=== PATIENT | male | born 1950 | race Caucasian/White ===

== ENCOUNTER 2022-06-23 17:19 | Inpatient (IN) ==
[2022-06-23] MEDS ORDERED: Haloperidol Lactate 5 MG/ML VIAL IVP ONE (22:23)
[2022-06-23] MEDS ORDERED: Naloxone 0.4 MG/ML INJ IVP PRN (22:27)
[2022-06-23] MEDS ORDERED: MOM Conc 10 ML UD.LIQ PO PRN (22:27)
[2022-06-23] MEDS ORDERED: Acetaminophen 325 MG TABLET PO PRN (22:27)
[2022-06-23] MEDS ORDERED: *HR* LORazepam 1 MG TABLET PO PRN ×5 (22:29→23:18)
[2022-06-23] MEDS ORDERED: *HR* LORazepam 2 MG/ML VIAL IVP PRN ×5 (22:29→23:18)
[2022-06-23] MEDS ORDERED: Benzonatate 100 MG CAPSULE PO PRN (23:18)
[2022-06-23] MEDS ORDERED: 0.9 % Sodium Chloride 1,000 ML IVC SCH (23:45)
[2022-06-24] MEDS ORDERED: *HR* Labetalol 20 MG/4 ML SYRINGE IVP ONE ×2 (00:12→02:38)
[2022-06-24] MEDS: Dexmedetomidine HCl 400 MCG/100 ML MLS IVC SCH ×2 (03:09→12:55)
[2022-06-24 04:24] LABS: Bilirubin,Urine Negative (Negative); Blood,Urine Negative (Negative); Clarity,Urine Clear (Clear); Color,Urine Yellow (Yellow); Glucose,Urine (UA) Normal (Normal); Ketones,Urine 60 mg/dL (Negative); Leukocyte Esterase,Urine Negative (Negative); Nitrite,Urine Negative (Negative); PH,Urine 6.5 pH Units (5.0-8.0); Protein,Urine 70 mg/dL (Neg-Trace); RBC,Urine 0-3 per hpf (0-3); Specific Gravity,Urine 1.022 (1.010-1.025); Squamous Epithelial Cell,Urine Few per hpf (None-Few); WBC,Urine 0-3 per hpf (0-3)
[2022-06-24 04:33] LABS: Creatinine,Urine 144 mg/dL
[2022-06-24 04:34] LABS: Amphetamine Screen,Urine Negative ng/mL (Cutoff=1000); Barbiturate Screen,Urine Negative ng/mL (Cutoff=200); Benzodiazepines Screen,Urine Positive ng/mL (Cutoff=200); Cannabinoid Screen,Urine Negative ng/mL (Cutoff = 50); Cocaine Screen,Urine Negative ng/mL (Cutoff= 300); Opiate Screen,Urine Negative ng/mL (Cutoff=300); Phencyclidine Screen,Urine Negative ng/mL (Cutoff=25)
[2022-06-24] MEDS: *HR* Heparin 5,000 UNIT/ML VIAL SQ SCH ×2 (05:13→12:41)
[2022-06-24 06:05] LABS: Hematocrit 35.3 % (37.5-50.1); Hemoglobin 11.7 g/dL (12.9-16.9); Immature Granulocytes % 0.4 % (0-4); Lymphocytes # 0.4 K/mcL (0.6-4.6); Lymphocytes % 13.8 %; Mean Corpuscular HGB Conc 33.1 g/dL (31.6-35.5); Mean Corpuscular Hemoglobin 35.1 pg (28.0-33.3); Mean Platelet Volume 11.6 fL (9.4-12.4); Monocytes # 0.1 K/mcL (0.0-1.3); Monocytes % 3.4 %; Neutrophils # 2.2 K/mcL (1.6-8.9); Red Blood Count 3.33 M/mcL (4.19-5.50); Red Cell Distribution Width 13.3 % (11.5-14.5); Segmented Neutrophils % 82.4 %; White Blood Count 2.7 K/mcL (4.3-11.1)
[2022-06-24 06:15] LABS: Fibrinogen 350 mg/dL (169-393)
[2022-06-24 06:21] LABS: D-Dimer 1173 ng/mLFEU (0-500)
[2022-06-24 06:48] LABS: Alanine Aminotransferase 91 Units/L (7-52); Albumin 3.5 g/dL (3.5-5.7); Albumin/Globulin Ratio 1.5 (1.1-2.2); Alkaline Phosphatase 111 Units/L (34-104); Aspartate Amino Transferase 224 Units/L (13-39); BUN/Creatinine Ratio 19 (6-26); Bilirubin,Total 2.4 mg/dL (0.3-1.0); Blood Urea Nitrogen 14 mg/dL (8-23); Calcium 8.2 mg/dL (8.6-10.3); Carbon Dioxide 25 mEq/L (23-29); Chloride 103 mEq/L (98-107); Ethanol < 10 mg/dL (Less than 10); Globulin 2.4 g/dL (2.4-3.5); Glucose 140 mg/dL (70-105); Lactate Dehydrogenase 495 Units/L (140-271); Lipase 475 Units/L (11-82); Magnesium 1.9 mg/dL (1.6-2.6); Osmolality,Calculated 289 (280-300); Phosphorous 2.6 mg/dL (2.7-4.5); Potassium 3.4 mEq/L (3.5-5.1); Sodium 138 mEq/L (136-145); Thyroid Stimulating Hormone 3.375 mcIU/mL (0.340-5.600); Total Protein 5.9 g/dL (6.4-8.9); Troponin I 0.05 ng/mL (< 0.04)
[2022-06-24 06:49] LABS: Platelet Count 44 K/mcL (140-400)
[2022-06-24] MEDS: Folic Acid 1 MG TABLET PO SCH (07:59)
[2022-06-24] MEDS: Thiamine (B-1) 100 MG TABLET PO SCH (07:59)
[2022-06-24] MEDS: Vitamin B Complex/Vit C/Vit E 1 EACH TABLET PO SCH (07:59)
[2022-06-24] MEDS: *HR* Labetalol 20 MG/4 ML SYRINGE IVP PRN (08:00)
[2022-06-24] MEDS ORDERED: Potassium Phosphate 44 MEQ in 0.9 % Sodium Chloride 250 ML IVPB ONE (08:08)
[2022-06-24 10:55] LABS: Prothrombin Time 11.4 Seconds (9.4-12.1)
[2022-06-24 12:37] LABS: C-Reactive Protein 134 mg/L (Less than 10)
[2022-06-24] MEDS: Morphine Sulfate 2 MG/ML SYRINGE IVP SCH ×2 (12:42→18:34)
[2022-06-24] MEDS: 0.9 % Sodium Chloride 1,000 ML IVC SCH (15:27)
[2022-06-25] MEDS: Morphine Sulfate 2 MG/ML SYRINGE IVP SCH ×5 (00:30→17:24)
[2022-06-25] MEDS: 0.9 % Sodium Chloride 1,000 ML IVC SCH ×3 (00:57→20:05)
[2022-06-25] MEDS: Dexmedetomidine HCl 400 MCG/100 ML MLS IVC SCH ×4 (00:58→18:30)
[2022-06-25 04:29] LABS: Mean Platelet Volume 11.2 fL (9.4-12.4)
[2022-06-25 04:31] LABS: Basophils % 0.5 %; Eosinophils % 0.5 %; Hematocrit 32.7 % (37.5-50.1); Hemoglobin 10.6 g/dL (12.9-16.9); Immature Platelets 7.2 % (1.1-6.1); Lymphocytes # 0.5 K/mcL (0.6-4.6); Lymphocytes % 22.5 %; Mean Corpuscular HGB Conc 32.4 g/dL (31.6-35.5); Mean Corpuscular Hemoglobin 34.5 pg (28.0-33.3); Mean Corpuscular Volume 106.5 fL (83.0-100.0); Monocytes # 0.1 K/mcL (0.0-1.3); Monocytes % 2.5 %; Neutrophils # 1.5 K/mcL (1.6-8.9); Red Blood Count 3.07 M/mcL (4.19-5.50)
[2022-06-25 04:37] LABS: Platelet Count 41 K/mcL (140-400)
[2022-06-25 04:49] LABS: Alanine Aminotransferase 89 Units/L (7-52); Albumin/Globulin Ratio 1.4 (1.1-2.2); Alkaline Phosphatase 97 Units/L (34-104); Aspartate Amino Transferase 214 Units/L (13-39); BUN/Creatinine Ratio 21 (6-26); Bilirubin,Total 2.1 mg/dL (0.3-1.0); Blood Urea Nitrogen 14 mg/dL (8-23); Calcium 7.8 mg/dL (8.6-10.3); Carbon Dioxide 25 mEq/L (23-29); Chloride 107 mEq/L (98-107); Chol/HDL Ratio 3.2 (0-4.9); Cholesterol 147 mg/dL (< 200); Globulin 2.2 g/dL (2.4-3.5); Glucose 116 mg/dL (70-105); HDL Cholesterol 46 mg/dL (40-59); LDL Cholesterol,Calculated 75 mg/dL (< 100); Osmolality,Calculated 291 (280-300); Phosphorous 2.7 mg/dL (2.7-4.5); Potassium 3.6 mEq/L (3.5-5.1); Sodium 140 mEq/L (136-145); Total Protein 5.2 g/dL (6.4-8.9); Triglycerides 128 mg/dL (< 150)
[2022-06-25 05:12] LABS: Folate 12.3 ng/mL (3.0-16.0)
[2022-06-25] MEDS: Vitamin B Complex/Vit C/Vit E 1 EACH TABLET PO SCH (07:41)
[2022-06-25] MEDS: Folic Acid 1 MG TABLET PO SCH (07:41)
[2022-06-25] MEDS: Thiamine (B-1) 100 MG TABLET PO SCH (07:41)
[2022-06-25] MEDS: *HR* LORazepam 2 MG/ML VIAL IVP PRN ×3 (15:09→21:57)
[2022-06-25] MEDS ORDERED: *HR* OxyCODONE/APAP 10/325 TABLET PO PRN (18:37)
[2022-06-25] MEDS ORDERED: Morphine Sulfate 2 MG/ML SYRINGE IVP PRN (18:39)
[2022-06-25] MEDS: Mirtazapine 15 MG TABLET PO SCH (20:05)
[2022-06-26] MEDS: *HR* LORazepam 2 MG/ML VIAL IVP PRN ×6 (00:34→11:44)
[2022-06-26] MEDS: Dexmedetomidine HCl 400 MCG/100 ML MLS IVC SCH ×5 (01:11→23:40)
[2022-06-26] MEDS: *HR* Labetalol 20 MG/4 ML SYRINGE IVP PRN (01:13)
[2022-06-26] MEDS ORDERED: Haloperidol Lactate 5 MG/ML VIAL IM ONE (03:47)
[2022-06-26 05:00] LABS: Basophils % 0.4 %; Eosinophils % 1.7 %
[2022-06-26 05:02] LABS: Hematocrit 32.8 % (37.5-50.1); Hemoglobin 10.9 g/dL (12.9-16.9); Immature Granulocytes % 0.9 % (0-4); Immature Platelets 5.3 % (1.1-6.1); Lymphocytes # 0.5 K/mcL (0.6-4.6); Lymphocytes % 20.5 %; Mean Corpuscular HGB Conc 33.2 g/dL (31.6-35.5); Mean Corpuscular Hemoglobin 35.5 pg (28.0-33.3); Mean Corpuscular Volume 106.8 fL (83.0-100.0); Monocytes # 0.1 K/mcL (0.0-1.3); Monocytes % 4.7 %; Neutrophils # 1.7 K/mcL (1.6-8.9); Nucleated Red Blood Cells 0.9 /100 WBC (0); Red Blood Count 3.07 M/mcL (4.19-5.50); Red Cell Distribution Width 13.1 % (11.5-14.5); Segmented Neutrophils % 71.8 %; White Blood Count 2.3 K/mcL (4.3-11.1)
[2022-06-26 05:09] LABS: Alanine Aminotransferase 82 Units/L (7-52); Albumin 2.9 g/dL (3.5-5.7); Albumin/Globulin Ratio 1.2 (1.1-2.2); Alkaline Phosphatase 102 Units/L (34-104); Aspartate Amino Transferase 180 Units/L (13-39); BUN/Creatinine Ratio 22 (6-26); Bilirubin,Total 2.2 mg/dL (0.3-1.0); Blood Urea Nitrogen 13 mg/dL (8-23); Calcium 7.7 mg/dL (8.6-10.3); Carbon Dioxide 25 mEq/L (23-29); Chloride 108 mEq/L (98-107); Globulin 2.4 g/dL (2.4-3.5); Glucose 81 mg/dL (70-105); Magnesium 1.8 mg/dL (1.6-2.6); Osmolality,Calculated 291 (280-300); Phosphorous 1.9 mg/dL (2.7-4.5); Potassium 3.3 mEq/L (3.5-5.1); Sodium 141 mEq/L (136-145); Total Protein 5.3 g/dL (6.4-8.9)
[2022-06-26 05:11] LABS: Platelet Count 47 K/mcL (140-400)
[2022-06-26] MEDS: 0.9 % Sodium Chloride 1,000 ML IVC SCH ×2 (05:53→15:09)
[2022-06-26] MEDS ORDERED: Potassium Phosphate 44 MEQ in 0.9 % Sodium Chloride 250 ML IVPB ONE (06:46)
[2022-06-26] MEDS: Vitamin B Complex/Vit C/Vit E 1 EACH TABLET PO SCH (07:45)
[2022-06-26] MEDS: Folic Acid 1 MG TABLET PO SCH (07:45)
[2022-06-26] MEDS: Metoprolol XL (24 HR) Succ 50 MG TAB.ER.24H PO SCH (07:45)
[2022-06-26] MEDS: Thiamine (B-1) 100 MG TABLET PO SCH (07:46)
[2022-06-26] MEDS: lisinopriL 20 MG TABLET PO SCH (07:46)
[2022-06-26] MEDS ORDERED: *HR* LORazepam 2 MG/ML VIAL IVP PRN ×2 (08:30)
[2022-06-26] MEDS: Morphine Sulfate 2 MG/ML SYRINGE IVP SCH ×4 (08:31→21:00)
[2022-06-26] MEDS ORDERED: Furosemide 40 MG/4 ML VIAL IVP ONE (10:03)
[2022-06-26] MEDS: Budesonide/Formoterol 160/4.5 1 PUFF INH IH SCH ×2 (10:44→19:51)
[2022-06-26 13:35] LABS: ABG Base Excess -2 mEq/L (-2 to 3); ABG HCO3 21 mEq/L (21-27); ABG Oxygen Saturation 98 % (95-98); ABG PCO2 29 mmHg (35-45); ABG PH 7.46 pH Units (7.32-7.45); ABG PO2 100 mmHg (85-104); ABG TCO2 22 mEq/L (20-26)
[2022-06-26] MEDS: Thiamine (B-1) 100 MG in 0.9 % Sodium Chloride 50 ML IVPB SCH (15:08)
[2022-06-26 17:41] LABS: BUN/Creatinine Ratio 20 (6-26); Blood Urea Nitrogen 13 mg/dL (8-23); Calcium 7.6 mg/dL (8.6-10.3); Carbon Dioxide 22 mEq/L (23-29); Chloride 106 mEq/L (98-107); Glucose 147 mg/dL (70-105); Magnesium 1.7 mg/dL (1.6-2.6); Osmolality,Calculated 289 (280-300); Potassium 3.4 mEq/L (3.5-5.1); Sodium 138 mEq/L (136-145)
[2022-06-26] MEDS ORDERED: Artificial Tears SOLN 15 ML BOTTLE BOTH EYES PRN (17:54)
[2022-06-26] MEDS ORDERED: GuaiFENesin Liq 200 MG/10 ML UDC GTUBE PRN (17:54)
[2022-06-26] MEDS ORDERED: *HR* Etomidate 20 MG/10 ML AMPUL IVP ONE (17:56)
[2022-06-26] MEDS ORDERED: *HR* Midazolam HCl 5 MG/5 ML VIAL IVP ONE (17:56)
[2022-06-26] MEDS: FentaNYL (PF) 1,000 MCG/100 ML IV.SOLN IVC SCH ×2 (18:00→21:39)
[2022-06-26 18:28] LABS: ABG Base Excess -4 mEq/L (-2 to 3); ABG HCO3 21 mEq/L (21-27); ABG Oxygen Saturation 97 % (95-98); ABG PCO2 37 mmHg (35-45); ABG PH 7.37 pH Units (7.32-7.45); ABG PO2 96 mmHg (85-104); ABG TCO2 22 mEq/L (20-26); Blood Gas Modality AF; Blood Gas VT 500 cc
[2022-06-26] MEDS: Pantoprazole 40 MG VIAL IVP SCH (18:44)
[2022-06-26] MEDS: Piperacillin/Tazobactam 3.375 GM in 0.9 % Sodium Chloride Mini Bag 100 ML IVPB SCH (18:45)
[2022-06-26] MEDS: Midazolam HCl 50 MG/50 ML IV.SOLN IVC SCH ×2 (18:45→22:32)
[2022-06-26] MEDS ORDERED: Vancomycin 1,500 MG/265 ML IV.SOLN IVPB ONE (19:00)
[2022-06-26] MEDS: Norepinephrine 4 MG/254 ML IV.SOLN IVC SCH (19:35)
[2022-06-26] MEDS: Artificial Tears SOLN 15 ML BOTTLE BOTH EYES SCH ×2 (19:42→23:14)
[2022-06-26] MEDS: Chlorhexidine Rinse 15 ML MOUTHWASH MM SCH (20:17)
[2022-06-26] MEDS: Mirtazapine 15 MG TABLET PO SCH (20:18)
[2022-06-27] MEDS: 0.9 % Sodium Chloride 1,000 ML IVC SCH ×3 (00:47→20:20)
[2022-06-27] MEDS: Piperacillin/Tazobactam 3.375 GM in 0.9 % Sodium Chloride Mini Bag 100 ML IVPB SCH ×3 (02:01→17:46)
[2022-06-27] MEDS: Dexmedetomidine HCl 400 MCG/100 ML MLS IVC SCH ×4 (02:02→20:19)
[2022-06-27] MEDS: Midazolam HCl 50 MG/50 ML IV.SOLN IVC SCH ×6 (02:03→20:22)
[2022-06-27] MEDS: FentaNYL (PF) 1,000 MCG/100 ML IV.SOLN IVC SCH ×5 (02:03→21:30)
[2022-06-27] MEDS ORDERED: Ibuprofen 800 MG TABLET PO ONE (02:28)
[2022-06-27] MEDS: Artificial Tears SOLN 15 ML BOTTLE BOTH EYES SCH ×5 (03:19→20:56)
[2022-06-27 03:23] LABS: Mean Corpuscular Volume 108.4 fL (83.0-100.0)
[2022-06-27 03:25] LABS: Basophils % 0.5 %; Hematocrit 32.3 % (37.5-50.1); Hemoglobin 10.4 g/dL (12.9-16.9); Immature Granulocytes % 1.4 % (0-4); Immature Platelets 4.7 % (1.1-6.1); Lymphocytes # 0.3 K/mcL (0.6-4.6); Mean Corpuscular HGB Conc 32.2 g/dL (31.6-35.5); Mean Corpuscular Hemoglobin 34.9 pg (28.0-33.3); Mean Platelet Volume 10.7 fL (9.4-12.4); Monocytes # 0.2 K/mcL (0.0-1.3); Monocytes % 10.6 %; Neutrophils # 1.6 K/mcL (1.6-8.9); Nucleated Red Blood Cells 0.9 /100 WBC (0); Red Blood Count 2.98 M/mcL (4.19-5.50); Red Cell Distribution Width 13.7 % (11.5-14.5); Segmented Neutrophils % 74.5 %; White Blood Count 2.2 K/mcL (4.3-11.1)
[2022-06-27 03:36] LABS: Platelet Count 54 K/mcL (140-400)
[2022-06-27 03:41] LABS: Alanine Aminotransferase 68 Units/L (7-52); Albumin 2.7 g/dL (3.5-5.7); Albumin/Globulin Ratio 1.2 (1.1-2.2); Alkaline Phosphatase 95 Units/L (34-104); Aspartate Amino Transferase 129 Units/L (13-39); BUN/Creatinine Ratio 21 (6-26); Bilirubin,Total 1.8 mg/dL (0.3-1.0); Blood Urea Nitrogen 15 mg/dL (8-23); Calcium 7.4 mg/dL (8.6-10.3); Carbon Dioxide 24 mEq/L (23-29); Chloride 109 mEq/L (98-107); Globulin 2.3 g/dL (2.4-3.5); Glucose 114 mg/dL (70-105); Magnesium 1.7 mg/dL (1.6-2.6); Osmolality,Calculated 294 (280-300); Phosphorous 2.2 mg/dL (2.7-4.5); Potassium 3.2 mEq/L (3.5-5.1); Sodium 141 mEq/L (136-145)
[2022-06-27] MEDS ORDERED: Potassium Chloride Elixir 20 MEQ/15 ML UDC GTUBE ONE (03:54)
[2022-06-27 04:25] LABS: ABG Base Excess -2 mEq/L (-2 to 3); ABG HCO3 22 mEq/L (21-27); ABG Oxygen Saturation 96 % (95-98); ABG PCO2 34 mmHg (35-45); ABG PH 7.42 pH Units (7.32-7.45); ABG PO2 81 mmHg (85-104); ABG TCO2 23 mEq/L (20-26); Blood Gas Modality ASSIST CONTROL; Blood Gas VT 500 cc
[2022-06-27] MEDS: Norepinephrine 4 MG/254 ML IV.SOLN IVC SCH (07:41)
[2022-06-27] MEDS: Chlorhexidine Rinse 15 ML MOUTHWASH MM SCH ×2 (07:45→20:18)
[2022-06-27] MEDS: Vancomycin 1,500 MG/265 ML IV.SOLN IVPB SCH ×2 (07:45→18:38)
[2022-06-27] MEDS: Thiamine (B-1) 100 MG TABLET PO SCH (07:48)
[2022-06-27] MEDS: Vitamin B Complex/Vit C/Vit E 1 EACH TABLET PO SCH (07:48)
[2022-06-27] MEDS: Dexamethasone Sodium Phos/PF 10 MG/ML VIAL IVP SCH (07:48)
[2022-06-27] MEDS: Morphine Sulfate 2 MG/ML SYRINGE IVP SCH ×3 (07:49→19:00)
[2022-06-27] MEDS: Pantoprazole 40 MG VIAL IVP SCH (08:12)
[2022-06-27] MEDS: Metoprolol XL (24 HR) Succ 50 MG TAB.ER.24H PO SCH (08:13)
[2022-06-27] MEDS: Budesonide/Formoterol 160/4.5 1 PUFF INH IH SCH ×2 (08:18→20:09)
[2022-06-27] MEDS: Thiamine (B-1) 100 MG in 0.9 % Sodium Chloride 50 ML IVPB SCH (08:40)
[2022-06-27] MEDS ORDERED: D10% in Water 500 ML IVC PRN (09:35)
[2022-06-27] MEDS: Calcium Gluconate 1gm/50mL 1 GM/50 ML BAG IVPB PRN (11:56)
[2022-06-27] MEDS: Potassium Phosphate 44 MEQ in 0.9 % Sodium Chloride 250 ML IVPB PRN (12:21)
[2022-06-27 13:03] LABS: A.calcoaceticus-baumannii cplx Not Detected (Not Detect); Bacteroides fragilis by PCR Not Detected (Not Detect); Candida albicans by PCR Not Detected (Not Detect); Candida auris by PCR Not Detected (Not Detect); Candida glabrata by PCR Not Detected (Not Detect); Candida krusei by PCR Not Detected (Not Detect); Candida parapsilosis by PCR Not Detected (Not Detect); Candida tropicalis by PCR Not Detected (Not Detect); Crypto. neoformans/gattii PCR Not Detected (Not Detect); Enterobacter cloacae Cmplx PCR Not Detected (Not Detect); Enterobacterales by PCR Not Detected (Not Detect); Enterococcus faecalis by PCR Not Detected (Not Detect); Enterococcus faecium by PCR Not Detected (Not Detect); Escherichia coli by PCR Not Detected (Not Detect); Klebs. pneumoniae group by PCR Not Detected (Not Detect); Klebsiella aerogenes by PCR Not Detected (Not Detect); Klebsiella oxytoca by PCR Not Detected (Not Detect); Proteus by PCR Not Detected (Not Detect); Pseudomonas aeruginosa by PCR Not Detected (Not Detect); Salmonella species by PCR Not Detected (Not Detect); Serratia marcescens by PCR Not Detected (Not Detect); Staph epidermidis by PCR Not Detected (Not Detect); Staph lugdunensis by PCR Not Detected (Not Detect); Staphylococcus aureus by PCR DETECTED (Not Detect); Stenotrophomonas maltophilia Not Detected (Not Detect); Streptococcus agalactiae(B)PCR Not Detected (Not Detect); Streptococcus by PCR Not Detected (Not Detect); Streptococcus pneumoniae PCR Not Detected (Not Detect); Streptococcus pyogenes (A) PCR Not Detected (Not Detect); mecA/C & MREJ (MRSA) Gene Not Detected (Not Detect)
[2022-06-27] MEDS: Insulin LISPRO 300 UNITS/3 ML VIAL SUBQ SCH ×2 (16:37→20:56)
[2022-06-27] MEDS ORDERED: Fat Emulsion 250 ML IVPB SCH (17:00)
[2022-06-27] MEDS ORDERED: Clinimix E 5%-20% SOLUTION 2,000 ML with MVI, adult with vitamin K 10 ML IVC SCH (17:00)
[2022-06-27] MEDS: Mirtazapine 15 MG TABLET PO SCH (20:19)
[2022-06-28] MEDS: Artificial Tears SOLN 15 ML BOTTLE BOTH EYES SCH ×6 (00:54→20:58)
[2022-06-28] MEDS: Insulin LISPRO 300 UNITS/3 ML VIAL SUBQ SCH ×6 (01:16→20:59)
[2022-06-28] MEDS: Norepinephrine 4 MG/254 ML IV.SOLN IVC SCH ×2 (01:17→09:43)
[2022-06-28] MEDS: Midazolam HCl 50 MG/50 ML IV.SOLN IVC SCH ×2 (02:20→06:51)
[2022-06-28] MEDS: Piperacillin/Tazobactam 3.375 GM in 0.9 % Sodium Chloride Mini Bag 100 ML IVPB SCH ×3 (02:21→18:01)
[2022-06-28] MEDS: Morphine Sulfate 2 MG/ML SYRINGE IVP SCH ×2 (02:21→07:07)
[2022-06-28] MEDS: FentaNYL (PF) 1,000 MCG/100 ML IV.SOLN IVC SCH ×2 (02:50→07:14)
[2022-06-28] MEDS: Dexmedetomidine HCl 400 MCG/100 ML MLS IVC SCH ×3 (04:31→16:54)
[2022-06-28 05:00] LABS: ABG Base Excess -4 mEq/L (-2 to 3); ABG HCO3 21 mEq/L (21-27); ABG Oxygen Saturation 97 % (95-98); ABG PCO2 33 mmHg (35-45); ABG PH 7.41 pH Units (7.32-7.45); ABG PO2 85 mmHg (85-104); ABG TCO2 22 mEq/L (20-26); Blood Gas Modality ASSIST CONTROL; Blood Gas VT 500 cc
[2022-06-28] MEDS: 0.9 % Sodium Chloride 1,000 ML IVC SCH ×2 (06:48→15:41)
[2022-06-28] MEDS: Pantoprazole 40 MG VIAL IVP SCH (07:13)
[2022-06-28] MEDS: Chlorhexidine Rinse 15 ML MOUTHWASH MM SCH ×2 (07:13→21:00)
[2022-06-28] MEDS: Thiamine (B-1) 100 MG in 0.9 % Sodium Chloride 50 ML IVPB SCH (07:13)
[2022-06-28] MEDS: Thiamine (B-1) 100 MG TABLET PO SCH (07:14)
[2022-06-28] MEDS: Vitamin B Complex/Vit C/Vit E 1 EACH TABLET PO SCH (07:14)
[2022-06-28] MEDS: Dexamethasone Sodium Phos/PF 10 MG/ML VIAL IVP SCH (07:14)
[2022-06-28] MEDS: Metoprolol XL (24 HR) Succ 50 MG TAB.ER.24H PO SCH (07:40)
[2022-06-28] MEDS: Budesonide/Formoterol 160/4.5 1 PUFF INH IH SCH ×2 (08:10→20:09)
[2022-06-28] MEDS ORDERED: *HR* Methotrexate 2.5 MG TABLET PO SCH (09:00)
[2022-06-28 09:07] LABS: Alanine Aminotransferase 64 Units/L (7-52); Albumin 2.7 g/dL (3.5-5.7); Albumin/Globulin Ratio 1.1 (1.1-2.2); Alkaline Phosphatase 82 Units/L (34-104); Aspartate Amino Transferase 96 Units/L (13-39); BUN/Creatinine Ratio 23 (6-26); Bilirubin,Total 1.1 mg/dL (0.3-1.0); Blood Urea Nitrogen 15 mg/dL (8-23); Calcium 7.4 mg/dL (8.6-10.3); Carbon Dioxide 22 mEq/L (23-29); Chloride 115 mEq/L (98-107); Globulin 2.5 g/dL (2.4-3.5); Glucose 106 mg/dL (70-105); Osmolality,Calculated 295 (280-300); Potassium 3.5 mEq/L (3.5-5.1); Sodium 142 mEq/L (136-145); Total Protein 5.2 g/dL (6.4-8.9)
[2022-06-28] MEDS: Vancomycin 2,000 MG/520 ML IV.SOLN IVPB SCH ×2 (09:43→18:42)
[2022-06-28 09:54] LABS: Lipase 147 Units/L (11-82)
[2022-06-28 09:59] LABS: Mean Corpuscular HGB Conc 32.3 g/dL (31.6-35.5); Mean Platelet Volume 10.1 fL (9.4-12.4)
[2022-06-28 10:01] LABS: Hematocrit 32.5 % (37.5-50.1); Hemoglobin 10.5 g/dL (12.9-16.9); Immature Platelets 4.2 % (1.1-6.1); Lymphocytes # 0.2 K/mcL (0.6-4.6); Mean Corpuscular Hemoglobin 35.4 pg (28.0-33.3); Mean Corpuscular Volume 109.4 fL (83.0-100.0); Red Blood Count 2.97 M/mcL (4.19-5.50); Red Cell Distribution Width 13.7 % (11.5-14.5); White Blood Count 2.4 K/mcL (4.3-11.1)
[2022-06-28 10:03] LABS: Platelet Count 81 K/mcL (140-400)
[2022-06-28 10:23] LABS: Eosinophils # 0.1 K/mcL (0.0-0.6)
[2022-06-28 10:24] LABS: Platelet Estimate Slight Decrease (Normal); Polychromasia 1+ (Not Present)
[2022-06-28 10:26] LABS: Monocytes # 0.2 K/mcL (0.0-1.3); Neutrophils # 1.9 K/mcL (1.6-8.9)
[2022-06-28 11:03] LABS: Prothrombin Time 11.6 Seconds (9.4-12.1)
[2022-06-28 11:05] LABS: Activated Partial Thrombo Time 25.7 Seconds (26.0-36.0)
[2022-06-28] MEDS: Potassium Phosphate 44 MEQ in 0.9 % Sodium Chloride 250 ML IVPB PRN (11:16)
[2022-06-28] MEDS: Calcium Gluconate 1gm/50mL 1 GM/50 ML BAG IVPB PRN (12:52)
[2022-06-28] MEDS: *HR* Labetalol 20 MG/4 ML SYRINGE IVP PRN ×2 (15:40→22:06)
[2022-06-28] MEDS: Morphine Sulfate 2 MG/ML SYRINGE IVP PRN ×2 (15:41→22:05)
[2022-06-28] MEDS: Fat Emulsion 250 ML IVPB SCH (16:09)
[2022-06-28] MEDS ORDERED: Clinimix E 5%-20% SOLUTION 2,000 ML with MVI, adult with vitamin K 10 ML IVC SCH (17:00)
[2022-06-28] MEDS: Mirtazapine 15 MG TABLET PO SCH (21:00)
[2022-06-29] MEDS: Artificial Tears SOLN 15 ML BOTTLE BOTH EYES SCH ×4 (00:39→11:58)
[2022-06-29] MEDS: Insulin LISPRO 300 UNITS/3 ML VIAL SUBQ SCH ×6 (00:40→20:33)
[2022-06-29] MEDS: Norepinephrine 4 MG/254 ML IV.SOLN IVC SCH (00:40)
[2022-06-29] MEDS: Dexmedetomidine HCl 400 MCG/100 ML MLS IVC SCH ×3 (00:41→15:30)
[2022-06-29] MEDS: 0.9 % Sodium Chloride 1,000 ML IVC SCH (03:52)
[2022-06-29] MEDS: Piperacillin/Tazobactam 3.375 GM in 0.9 % Sodium Chloride Mini Bag 100 ML IVPB SCH ×2 (03:52→11:35)
[2022-06-29] MEDS: *HR* LORazepam 2 MG/ML VIAL IVP PRN (03:53)
[2022-06-29] MEDS: *HR* Labetalol 20 MG/4 ML SYRINGE IVP PRN ×2 (04:00→22:56)
[2022-06-29] MEDS ORDERED: Ibuprofen 800 MG TABLET PO ONE (04:04)
[2022-06-29 05:17] LABS: Basophils % 0.3 %; Eosinophils % 0.3 %; Hematocrit 35.4 % (37.5-50.1); Hemoglobin 10.8 g/dL (12.9-16.9); Lymphocytes # 0.3 K/mcL (0.6-4.6); Mean Corpuscular HGB Conc 30.5 g/dL (31.6-35.5); Mean Corpuscular Volume 114.6 fL (83.0-100.0); Monocytes # 0.2 K/mcL (0.0-1.3); Monocytes % 5.1 %; Platelet Count 109 K/mcL (140-400); Red Blood Count 3.09 M/mcL (4.19-5.50); Red Cell Distribution Width 13.3 % (11.5-14.5); Segmented Neutrophils % 85.3 %; White Blood Count 3.1 K/mcL (4.3-11.1)
[2022-06-29 05:36] LABS: Neutrophils # 2.6 K/mcL (1.6-8.9)
[2022-06-29 05:37] LABS: Platelet Estimate Slight Decrease (Normal)
[2022-06-29 07:27] LABS: Alanine Aminotransferase 68 Units/L (7-52); Albumin 2.8 g/dL (3.5-5.7); Albumin/Globulin Ratio 1.1 (1.1-2.2); Alkaline Phosphatase 114 Units/L (34-104); Aspartate Amino Transferase 107 Units/L (13-39); BUN/Creatinine Ratio 16 (6-26); Bilirubin,Total 1.2 mg/dL (0.3-1.0); Blood Urea Nitrogen 10 mg/dL (8-23); Calcium 7.8 mg/dL (8.6-10.3); Carbon Dioxide 26 mEq/L (23-29); Chloride 108 mEq/L (98-107); Globulin 2.5 g/dL (2.4-3.5); Glucose 158 mg/dL (70-105); Magnesium 1.7 mg/dL (1.6-2.6); Osmolality,Calculated 294 (280-300); Potassium 2.8 mEq/L (3.5-5.1); Sodium 141 mEq/L (136-145); Total Protein 5.3 g/dL (6.4-8.9)
[2022-06-29] MEDS: Budesonide/Formoterol 160/4.5 1 PUFF INH IH SCH ×2 (07:38→20:46)
[2022-06-29] MEDS: Dexamethasone Sodium Phos/PF 10 MG/ML VIAL IVP SCH (07:55)
[2022-06-29] MEDS: Pantoprazole 40 MG VIAL IVP SCH (07:55)
[2022-06-29] MEDS: Chlorhexidine Rinse 15 ML MOUTHWASH MM SCH ×2 (07:55→20:32)
[2022-06-29] MEDS: Vitamin B Complex/Vit C/Vit E 1 EACH TABLET PO SCH (07:56)
[2022-06-29] MEDS: Thiamine (B-1) 100 MG TABLET PO SCH (07:56)
[2022-06-29] MEDS: Vancomycin 2,000 MG/520 ML IV.SOLN IVPB SCH (09:33)
[2022-06-29] MEDS: Thiamine (B-1) 100 MG in 0.9 % Sodium Chloride 50 ML IVPB SCH (09:34)
[2022-06-29] MEDS: Potassium Phosphate 44 MEQ in 0.9 % Sodium Chloride 250 ML IVPB PRN (12:48)
[2022-06-29] MEDS: CeFAZolin 2,000 MG/120 ML BAG IVPB SCH (16:05)
[2022-06-29] MEDS: Fat Emulsion 250 ML IVPB SCH (16:43)
[2022-06-29] MEDS: *HR* Metoprolol 5 MG/5 ML VIAL IVP SCH (16:47)
[2022-06-29] MEDS ORDERED: Clinimix E 5%-20% SOLUTION 2,000 ML with MVI, adult with vitamin K 10 ML IVC SCH (17:00)
[2022-06-29] MEDS: *HR* OxyCODONE Immed Rel 5 MG TABLET PO PRN (22:56)
[2022-06-30] MEDS: Insulin LISPRO 300 UNITS/3 ML VIAL SUBQ SCH ×7 (00:45→23:58)
[2022-06-30] MEDS: CeFAZolin 2,000 MG/120 ML BAG IVPB SCH ×4 (00:49→23:56)
[2022-06-30] MEDS: *HR* Metoprolol 5 MG/5 ML VIAL IVP SCH ×2 (00:50→04:57)
[2022-06-30] MEDS: Dexmedetomidine HCl 400 MCG/100 ML MLS IVC SCH ×9 (00:55→23:57)
[2022-06-30] MEDS ORDERED: Ibuprofen 600 MG TABLET PO PRN (05:24)
[2022-06-30 05:26] LABS: Alanine Aminotransferase 92 Units/L (7-52); Albumin 2.6 g/dL (3.5-5.7); Alkaline Phosphatase 92 Units/L (34-104); Aspartate Amino Transferase 142 Units/L (13-39); BUN/Creatinine Ratio 19 (6-26); Bilirubin,Total 0.9 mg/dL (0.3-1.0); Blood Urea Nitrogen 11 mg/dL (8-23); Calcium 7.7 mg/dL (8.6-10.3); Carbon Dioxide 27 mEq/L (23-29); Chloride 108 mEq/L (98-107); Globulin 2.6 g/dL (2.4-3.5); Glucose 179 mg/dL (70-105); Osmolality,Calculated 296 (280-300); Phosphorous 2.5 mg/dL (2.7-4.5); Potassium 2.6 mEq/L (3.5-5.1); Sodium 141 mEq/L (136-145); Total Protein 5.2 g/dL (6.4-8.9)
[2022-06-30] MEDS: *HR* Enoxaparin 40 MG/0.4 ML SYRINGE SQ SCH (06:06)
[2022-06-30 06:24] LABS: Basophils % 0.3 %; Hemoglobin 10.6 g/dL (12.9-16.9); Immature Granulocytes % 0.6 % (0-4); Lymphocytes # 0.4 K/mcL (0.6-4.6); Lymphocytes % 10.2 %; Mean Corpuscular HGB Conc 34.2 g/dL (31.6-35.5); Mean Corpuscular Hemoglobin 35.1 pg (28.0-33.3); Mean Corpuscular Volume 102.6 fL (83.0-100.0); Mean Platelet Volume 10.2 fL (9.4-12.4); Monocytes # 0.2 K/mcL (0.0-1.3); Monocytes % 5.2 %; Neutrophils # 2.9 K/mcL (1.6-8.9); Platelet Count 128 K/mcL (140-400); Red Blood Count 3.02 M/mcL (4.19-5.50); Red Cell Distribution Width 13.2 % (11.5-14.5); Segmented Neutrophils % 83.7 %; White Blood Count 3.4 K/mcL (4.3-11.1)
[2022-06-30] MEDS: Chlorhexidine Rinse 15 ML MOUTHWASH MM SCH ×2 (07:49→20:31)
[2022-06-30] MEDS: Budesonide/Formoterol 160/4.5 1 PUFF INH IH SCH ×2 (07:55→20:53)
[2022-06-30 08:09] LABS: Amylase 174 Units/L (29-103); Lipase 760 Units/L (11-82)
[2022-06-30] MEDS: Potassium Phosphate 44 MEQ in 0.9 % Sodium Chloride 250 ML IVPB PRN (08:15)
[2022-06-30] MEDS: Thiamine (B-1) 100 MG in 0.9 % Sodium Chloride 50 ML IVPB SCH (08:16)
[2022-06-30] MEDS: Pantoprazole 40 MG VIAL IVP SCH (08:17)
[2022-06-30] MEDS: Thiamine (B-1) 100 MG TABLET PO SCH (08:17)
[2022-06-30] MEDS: *HR* LORazepam 1 MG TABLET PO PRN (09:38)
[2022-06-30] MEDS: *HR* OxyCODONE Immed Rel 5 MG TABLET PO PRN ×2 (09:44→21:55)
[2022-06-30] MEDS ORDERED: Metoprolol XL (24 HR) Succ 50 MG TAB.ER.24H PO ONE (11:07)
[2022-06-30] MEDS ORDERED: lisinopriL 20 MG TABLET PO ONE (11:07)
[2022-06-30 11:32] LABS: Troponin I 0.04 ng/mL (< 0.04)
[2022-06-30] MEDS: Fat Emulsion 250 ML IVPB SCH (16:11)
[2022-06-30] MEDS ORDERED: Clinimix E 5%-20% SOLUTION 2,000 ML with MVI, adult with vitamin K 10 ML IVC SCH (17:00)
[2022-06-30 17:18] LABS: Magnesium 2.2 mg/dL (1.6-2.6); Phosphorous 3.7 mg/dL (2.7-4.5); Potassium 3.3 mEq/L (3.5-5.1)
[2022-06-30] MEDS ORDERED: Dexmedetomidine HCl 400 MCG/100 ML MLS IVC ONE ×2 (18:40→20:29)
[2022-06-30] MEDS ORDERED: OLANZapine 5 MG TAB.RAPDIS PO ONE (20:28)
[2022-06-30] MEDS ORDERED: Chlorhexidine Rinse 15 ML MOUTHWASH ONE (20:29)
[2022-06-30] MEDS ORDERED: Potassium Chloride Elixir 20 MEQ/15 ML UDC ONE (20:29)
[2022-06-30] MEDS: OLANZapine 5 MG TAB.RAPDIS PO SCH (20:31)
[2022-07-01] MEDS: Dexmedetomidine HCl 400 MCG/100 ML MLS IVC SCH ×6 (02:47→21:25)
[2022-07-01] MEDS: *HR* OxyCODONE Immed Rel 5 MG TABLET PO PRN ×5 (05:00→20:35)
[2022-07-01] MEDS: Insulin LISPRO 300 UNITS/3 ML VIAL SUBQ SCH ×6 (05:43→23:18)
[2022-07-01] MEDS: *HR* Enoxaparin 40 MG/0.4 ML SYRINGE SQ SCH (05:43)
[2022-07-01 06:16] LABS: Immature Granulocytes % 0.8 % (0-4); Lymphocytes % 12.3 %; Mean Corpuscular HGB Conc 28.2 g/dL (31.6-35.5)
[2022-07-01 06:17] LABS: Eosinophils % 0.8 %; Hematocrit 30.9 % (37.5-50.1); Hemoglobin 8.7 g/dL (12.9-16.9); Lymphocytes # 0.3 K/mcL (0.6-4.6); Mean Corpuscular Hemoglobin 34.7 pg (28.0-33.3); Mean Corpuscular Volume 123.1 fL (83.0-100.0); Mean Platelet Volume 10.3 fL (9.4-12.4); Monocytes # 0.1 K/mcL (0.0-1.3); Neutrophils # 2.1 K/mcL (1.6-8.9); Platelet Count 124 K/mcL (140-400); Red Blood Count 2.51 M/mcL (4.19-5.50); Red Cell Distribution Width 13.2 % (11.5-14.5); Segmented Neutrophils % 82.1 %; White Blood Count 2.5 K/mcL (4.3-11.1)
[2022-07-01] MEDS: Budesonide/Formoterol 160/4.5 1 PUFF INH IH SCH ×2 (07:45→20:26)
[2022-07-01 08:08] LABS: Anisocytosis 1+ (Not Present)
[2022-07-01 08:09] LABS: Hypochromasia Present (Not Present); Macrocytosis Present (Not Present); Platelet Estimate Slight Decrease (Normal)
[2022-07-01] MEDS: Chlorhexidine Rinse 15 ML MOUTHWASH MM SCH ×2 (08:12→20:35)
[2022-07-01] MEDS: CeFAZolin 2,000 MG/120 ML BAG IVPB SCH ×3 (08:20→23:11)
[2022-07-01] MEDS: Metoprolol XL (24 HR) Succ 50 MG TAB.ER.24H PO SCH (08:21)
[2022-07-01] MEDS: Thiamine (B-1) 100 MG TABLET PO SCH (08:21)
[2022-07-01] MEDS: Pantoprazole 40 MG VIAL IVP SCH (08:22)
[2022-07-01] MEDS: Vitamin B Complex/Vit C/Vit E 1 EACH TABLET PO SCH (08:23)
[2022-07-01] MEDS: Folic Acid 1 MG TABLET PO SCH (08:23)
[2022-07-01] MEDS: lisinopriL 20 MG TABLET PO SCH (08:23)
[2022-07-01 09:27] LABS: Alanine Aminotransferase 82 Units/L (7-52); Albumin 2.7 g/dL (3.5-5.7); Alkaline Phosphatase 103 Units/L (34-104); Aspartate Amino Transferase 105 Units/L (13-39); BUN/Creatinine Ratio 24 (6-26); Bilirubin,Total 0.8 mg/dL (0.3-1.0); Blood Urea Nitrogen 14 mg/dL (8-23); Calcium 7.7 mg/dL (8.6-10.3); Carbon Dioxide 27 mEq/L (23-29); Chloride 104 mEq/L (98-107); Globulin 2.7 g/dL (2.4-3.5); Glucose 171 mg/dL (70-105); Magnesium 1.9 mg/dL (1.6-2.6); Osmolality,Calculated 287 (280-300); Phosphorous 2.4 mg/dL (2.7-4.5); Potassium 3.2 mEq/L (3.5-5.1); Sodium 136 mEq/L (136-145); Total Protein 5.4 g/dL (6.4-8.9)
[2022-07-01] MEDS: Potassium Phosphate 44 MEQ in 0.9 % Sodium Chloride 250 ML IVPB PRN (10:23)
[2022-07-01] MEDS: Insulin DETEMIR 100 UNIT/ML X5UNITS SUBQ SCH ×2 (13:25→20:36)
[2022-07-01] MEDS: clonazePAM 0.5 MG TABLET PO PRN (15:26)
[2022-07-01] MEDS: Fat Emulsion 250 ML IVPB SCH (16:43)
[2022-07-01] MEDS ORDERED: Clinimix 5%-20% SOLUTION 2,000 ML with MVI, adult with vitamin K 10 ML, Sodium Acetat... IVC SCH (17:00)
[2022-07-01 18:08] LABS: BUN/Creatinine Ratio 22 (6-26); Blood Urea Nitrogen 14 mg/dL (8-23); Calcium 7.3 mg/dL (8.6-10.3); Carbon Dioxide 25 mEq/L (23-29); Chloride 103 mEq/L (98-107); Glucose 276 mg/dL (70-105); Magnesium 2.3 mg/dL (1.6-2.6); Osmolality,Calculated 286 (280-300); Phosphorous 3.6 mg/dL (2.7-4.5); Sodium 133 mEq/L (136-145)
[2022-07-01] MEDS: Mirtazapine 15 MG TABLET PO SCH (20:35)
[2022-07-01] MEDS: *HR* LORazepam 1 MG TABLET PO PRN (20:36)
[2022-07-01] MEDS: Melatonin 3 MG TABLET PO PRN (20:36)
[2022-07-01] MEDS: OLANZapine 5 MG TAB.RAPDIS PO SCH (21:25)
[2022-07-02] MEDS: Dexmedetomidine HCl 400 MCG/100 ML MLS IVC SCH ×5 (01:40→23:32)
[2022-07-02 04:00] LABS: Hematocrit 30.4 % (37.5-50.1); Immature Granulocytes % 1.3 % (0-4)
[2022-07-02 04:02] LABS: Basophils % 0.7 %; Eosinophils % 0.7 %; Hemoglobin 10.6 g/dL (12.9-16.9); Lymphocytes # 0.2 K/mcL (0.6-4.6); Lymphocytes % 14.5 %; Mean Corpuscular HGB Conc 34.9 g/dL (31.6-35.5); Mean Corpuscular Hemoglobin 47.7 pg (28.0-33.3); Mean Corpuscular Volume 136.9 fL (83.0-100.0); Mean Platelet Volume 10.6 fL (9.4-12.4); Monocytes # 0.1 K/mcL (0.0-1.3); Monocytes % 7.9 %; Neutrophils # 1.1 K/mcL (1.6-8.9); Nucleated Red Blood Cells 1.3 /100 WBC (0); Platelet Count 117 K/mcL (140-400); Red Blood Count 2.22 M/mcL (4.19-5.50); Red Cell Distribution Width 13.3 % (11.5-14.5); Segmented Neutrophils % 74.9 %; White Blood Count 1.5 K/mcL (4.3-11.1)
[2022-07-02] MEDS: *HR* Enoxaparin 40 MG/0.4 ML SYRINGE SQ SCH (04:14)
[2022-07-02] MEDS: *HR* OxyCODONE Immed Rel 5 MG TABLET PO PRN ×3 (04:14→18:10)
[2022-07-02] MEDS: Insulin LISPRO 300 UNITS/3 ML VIAL SUBQ SCH ×6 (04:27→23:56)
[2022-07-02 04:54] LABS: Anisocytosis 1+ (Not Present); Macrocytosis Present (Not Present); Platelet Estimate Slight Decrease (Normal)
[2022-07-02 06:00] LABS: Alanine Aminotransferase 70 Units/L (7-52); Albumin 2.7 g/dL (3.5-5.7); Alkaline Phosphatase 95 Units/L (34-104); Aspartate Amino Transferase 78 Units/L (13-39); BUN/Creatinine Ratio 22 (6-26); Bilirubin,Direct 0.3 mg/dL (0.0-0.2); Bilirubin,Indirect 0.3 mg/dL (0.0-1.0); Bilirubin,Total 0.6 mg/dL (0.3-1.0); Blood Urea Nitrogen 13 mg/dL (8-23); Calcium 7.5 mg/dL (8.6-10.3); Carbon Dioxide 25 mEq/L (23-29); Chloride 103 mEq/L (98-107); Globulin 2.7 g/dL (2.4-3.5); Glucose 312 mg/dL (70-105); Magnesium 2.2 mg/dL (1.6-2.6); Osmolality,Calculated 288 (280-300); Phosphorous 3.1 mg/dL (2.7-4.5); Potassium 3.4 mEq/L (3.5-5.1); Sodium 133 mEq/L (136-145); Total Protein 5.4 g/dL (6.4-8.9); Triglycerides 110 mg/dL (< 150)
[2022-07-02] MEDS: Budesonide/Formoterol 160/4.5 1 PUFF INH IH SCH ×2 (08:10→20:15)
[2022-07-02] MEDS: CeFAZolin 2,000 MG/120 ML BAG IVPB SCH ×3 (08:18→23:27)
[2022-07-02] MEDS: Folic Acid 1 MG TABLET PO SCH (08:19)
[2022-07-02] MEDS: Thiamine (B-1) 100 MG TABLET PO SCH (08:19)
[2022-07-02] MEDS: Vitamin B Complex/Vit C/Vit E 1 EACH TABLET PO SCH (08:19)
[2022-07-02] MEDS: Pantoprazole 40 MG VIAL IVP SCH (08:19)
[2022-07-02] MEDS: lisinopriL 20 MG TABLET PO SCH (08:19)
[2022-07-02] MEDS: Metoprolol XL (24 HR) Succ 50 MG TAB.ER.24H PO SCH (08:19)
[2022-07-02] MEDS: Chlorhexidine Rinse 15 ML MOUTHWASH MM SCH ×2 (08:20→20:26)
[2022-07-02] MEDS: Insulin DETEMIR 100 UNIT/ML X5UNITS SUBQ SCH ×2 (08:20→20:40)
[2022-07-02 09:53] LABS: Lipase 1663 Units/L (11-82)
[2022-07-02] MEDS: *HR* LORazepam 1 MG TABLET PO PRN (11:45)
[2022-07-02] MEDS: Ringers Solution, Lactated 1,000 ML IVC SCH (11:49)
[2022-07-02] MEDS: Ondansetron ODT 4 MG TAB.RAPDIS SL PRN (12:00)
[2022-07-02] MEDS ORDERED: D10% in Water 500 ML IVC PRN (13:18)
[2022-07-02] MEDS ORDERED: Iopamidol - 370 500 ML MLS IVP ONE (13:40)
[2022-07-02] MEDS ORDERED: Clinimix 5%-20% SOLUTION 2,000 ML with MVI, adult with vitamin K 10 ML, Sodium Acetat... IVC SCH (17:00)
[2022-07-02] MEDS: Fat Emulsion 250 ML IVPB SCH (17:33)
[2022-07-02] MEDS: clonazePAM 0.5 MG TABLET PO PRN (17:34)
[2022-07-02 20:01] LABS: Immature Reticulocyte % 30.9 % (11.0-38.0); Retculocyte # 0.08 M/mcL (0.05-0.10); Reticulocyte % 2.4 % (1.6-2.8)
[2022-07-02] MEDS: Mirtazapine 15 MG TABLET PO SCH (20:26)
[2022-07-02] MEDS: OLANZapine 5 MG TAB.RAPDIS PO SCH (20:26)
[2022-07-02] MEDS: Melatonin 3 MG TABLET PO PRN (22:05)
[2022-07-03] MEDS: *HR* OxyCODONE Immed Rel 5 MG TABLET PO PRN ×2 (00:13→12:39)
[2022-07-03] MEDS: *HR* LORazepam 1 MG TABLET PO PRN ×4 (00:15→23:04)
[2022-07-03] MEDS ORDERED: Chloraseptic Spray 177 ML BOTTLE MM PRN ×2 (02:24→12:55)
[2022-07-03] MEDS: Insulin LISPRO 300 UNITS/3 ML VIAL SUBQ SCH ×6 (03:24→23:19)
[2022-07-03] MEDS: Dexmedetomidine HCl 400 MCG/100 ML MLS IVC SCH ×4 (04:26→19:48)
[2022-07-03] MEDS: *HR* Enoxaparin 40 MG/0.4 ML SYRINGE SQ SCH (05:20)
[2022-07-03] MEDS: Ringers Solution, Lactated 1,000 ML IVC SCH (05:31)
[2022-07-03 06:59] LABS: Basophils % 0.3 %; Hematocrit 32.7 % (37.5-50.1); Lymphocytes # 0.4 K/mcL (0.6-4.6); Lymphocytes % 13.4 %; Mean Corpuscular HGB Conc 33.6 g/dL (31.6-35.5); Mean Corpuscular Volume 104.1 fL (83.0-100.0); Mean Platelet Volume 10.5 fL (9.4-12.4); Monocytes # 0.2 K/mcL (0.0-1.3); Monocytes % 7.7 %; Neutrophils # 2.4 K/mcL (1.6-8.9); Platelet Count 207 K/mcL (140-400); Red Blood Count 3.14 M/mcL (4.19-5.50); Red Cell Distribution Width 13.3 % (11.5-14.5); Segmented Neutrophils % 76.6 %; White Blood Count 3.1 K/mcL (4.3-11.1)
[2022-07-03] MEDS: Budesonide/Formoterol 160/4.5 1 PUFF INH IH SCH ×2 (07:25→20:14)
[2022-07-03 08:04] LABS: % Iron Saturation 14 % (20-55); Alanine Aminotransferase 69 Units/L (7-52); Albumin 2.7 g/dL (3.5-5.7); Albumin/Globulin Ratio 0.9 (1.1-2.2); Alkaline Phosphatase 99 Units/L (34-104); Aspartate Amino Transferase 80 Units/L (13-39); BUN/Creatinine Ratio 20 (6-26); Bilirubin,Direct 0.3 mg/dL (0.0-0.2); Bilirubin,Indirect 0.3 mg/dL (0.0-1.0); Bilirubin,Total 0.6 mg/dL (0.3-1.0); Blood Urea Nitrogen 14 mg/dL (8-23); Calcium 7.8 mg/dL (8.6-10.3); Carbon Dioxide 26 mEq/L (23-29); Chloride 102 mEq/L (98-107); Ferritin 1204 ng/mL (20-250); Globulin 2.9 g/dL (2.4-3.5); Glucose 247 mg/dL (70-105); Iron 27 mcg/dL (65-175); Lactate Dehydrogenase 274 Units/L (140-271); Lipase 1173 Units/L (11-82); Osmolality,Calculated 285 (280-300); Phosphorous 3.2 mg/dL (2.7-4.5); Potassium 3.8 mEq/L (3.5-5.1); Sodium 133 mEq/L (136-145); Thyroid Stimulating Hormone 8.411 mcIU/mL (0.340-5.600); Total Protein 5.6 g/dL (6.4-8.9); Transferrin 136 mg/dL (203-362); Triglycerides 96 mg/dL (< 150)
[2022-07-03] MEDS: CeFAZolin 2,000 MG/120 ML BAG IVPB SCH ×3 (08:25→23:04)
[2022-07-03] MEDS: Insulin DETEMIR 100 UNIT/ML X5UNITS SUBQ SCH ×2 (08:26→21:27)
[2022-07-03] MEDS: Ondansetron ODT 4 MG TAB.RAPDIS SL PRN (08:35)
[2022-07-03] MEDS: Thiamine (B-1) 100 MG TABLET PO SCH (08:43)
[2022-07-03] MEDS: lisinopriL 20 MG TABLET PO SCH (08:44)
[2022-07-03] MEDS: Chlorhexidine Rinse 15 ML MOUTHWASH MM SCH (08:45)
[2022-07-03] MEDS: Metoprolol XL (24 HR) Succ 50 MG TAB.ER.24H PO SCH (08:45)
[2022-07-03] MEDS: Folic Acid 1 MG TABLET PO SCH (08:49)
[2022-07-03] MEDS: Vitamin B Complex/Vit C/Vit E 1 EACH TABLET PO SCH (08:49)
[2022-07-03] MEDS ORDERED: Naloxone 0.4 MG/ML INJ IVP PRN (12:55)
[2022-07-03] MEDS ORDERED: *HR* OxyCODONE Immed Rel 5 MG TABLET PO PRN ×2 (12:55)
[2022-07-03] MEDS ORDERED: clonazePAM 0.5 MG TABLET PO PRN (12:55)
[2022-07-03] MEDS: Ibuprofen 600 MG TABLET PO PRN (15:59)
[2022-07-03] MEDS ORDERED: *HR* HYDROmorphone (PF) 1 MG/ML SYRINGE IVP ONE (17:18)
[2022-07-03] MEDS ORDERED: Insulin DETEMIR 100 UNIT/ML X5UNITS SUBQ SCH (21:00)
[2022-07-03] MEDS: OLANZapine 5 MG TAB.RAPDIS PO SCH (21:32)
[2022-07-03] MEDS: Melatonin 3 MG TABLET PO PRN (23:04)
[2022-07-03] MEDS ORDERED: Dextrose Gel 15 GM/37.5 ML TUBE PO PRN ×2 (23:23)
[2022-07-03] MEDS ORDERED: *HR* Dextrose 50 % in Water (Syg) 50 ML SYRINGE IVP PRN (23:23)
[2022-07-03] MEDS ORDERED: D5% in Water 1,000 ML IVC PRN (23:23)
[2022-07-04] MEDS: Dexmedetomidine HCl 400 MCG/100 ML MLS IVC SCH ×2 (01:55→08:10)
[2022-07-04] MEDS: Insulin LISPRO 300 UNITS/3 ML VIAL SUBQ SCH ×5 (04:08→20:22)
[2022-07-04] MEDS: Ibuprofen 600 MG TABLET PO PRN ×2 (04:21→12:46)
[2022-07-04 05:03] LABS: Albumin 2.8 g/dL (3.5-5.7); Albumin/Globulin Ratio 0.9 (1.1-2.2); Bilirubin,Direct 0.3 mg/dL (0.0-0.2); Bilirubin,Indirect 0.4 mg/dL (0.0-1.0); Bilirubin,Total 0.7 mg/dL (0.3-1.0); Globulin 3.1 g/dL (2.4-3.5); Total Protein 5.9 g/dL (6.4-8.9)
[2022-07-04] MEDS: *HR* Enoxaparin 40 MG/0.4 ML SYRINGE SQ SCH (05:33)
[2022-07-04] MEDS: Budesonide/Formoterol 160/4.5 1 PUFF INH IH SCH ×2 (07:23→19:39)
[2022-07-04] MEDS: Insulin DETEMIR 100 UNIT/ML X5UNITS SUBQ SCH ×2 (07:32→21:17)
[2022-07-04] MEDS: lisinopriL 20 MG TABLET PO SCH (09:03)
[2022-07-04] MEDS: Metoprolol XL (24 HR) Succ 50 MG TAB.ER.24H PO SCH (09:03)
[2022-07-04] MEDS: Vitamin B Complex/Vit C/Vit E 1 EACH TABLET PO SCH ×2 (09:04→10:47)
[2022-07-04] MEDS: CeFAZolin 2,000 MG/120 ML BAG IVPB SCH ×3 (09:04→23:19)
[2022-07-04] MEDS: Folic Acid 1 MG TABLET PO SCH ×2 (09:05→10:47)
[2022-07-04] MEDS: Thiamine (B-1) 100 MG TABLET PO SCH ×2 (09:05→10:47)
[2022-07-04] MEDS: Acetaminophen 325 MG TABLET PO PRN (14:49)
[2022-07-04] MEDS: *HR* OxyCODONE Immed Rel 5 MG TABLET PO PRN ×2 (16:26→20:55)
[2022-07-04] MEDS ORDERED: Mirtazapine 15 MG TABLET PO SCH (21:00)
[2022-07-04] MEDS: OLANZapine 5 MG TAB.RAPDIS PO SCH (21:17)
[2022-07-04] MEDS: Ondansetron ODT 4 MG TAB.RAPDIS SL PRN (22:36)
[2022-07-04] MEDS ORDERED: *HR* Promethazine 25 MG/ML VIAL IM ONE (22:59)
[2022-07-04] MEDS: Melatonin 3 MG TABLET PO PRN (23:19)
[2022-07-04] MEDS: *HR* LORazepam 1 MG TABLET PO PRN (23:19)
[2022-07-05] MEDS: Insulin LISPRO 300 UNITS/3 ML VIAL SUBQ SCH ×7 (01:47→21:48)
[2022-07-05] MEDS ORDERED: *HR* LORazepam 1 MG TABLET PO ONE (01:57)
[2022-07-05] MEDS: *HR* OxyCODONE Immed Rel 5 MG TABLET PO PRN ×4 (02:13→19:02)
[2022-07-05 02:45] LABS: Hematocrit 37.6 % (37.5-50.1); Hemoglobin 12.4 g/dL (12.9-16.9); Mean Corpuscular Hemoglobin 34.2 pg (28.0-33.3); Mean Corpuscular Volume 103.6 fL (83.0-100.0); Platelet Count 329 K/mcL (140-400); Red Blood Count 3.63 M/mcL (4.19-5.50); Red Cell Distribution Width 13.2 % (11.5-14.5); White Blood Count 4.4 K/mcL (4.3-11.1)
[2022-07-05 02:59] LABS: BUN/Creatinine Ratio 19 (6-26); Blood Urea Nitrogen 14 mg/dL (8-23); Calcium 7.8 mg/dL (8.6-10.3); Carbon Dioxide 24 mEq/L (23-29); Chloride 104 mEq/L (98-107); Glucose 122 mg/dL (70-105); Magnesium 1.9 mg/dL (1.6-2.6); Osmolality,Calculated 284 (280-300); Potassium 4.2 mEq/L (3.5-5.1); Sodium 136 mEq/L (136-145)
[2022-07-05] MEDS ORDERED: Ringers Solution, Lactated 500 ML IVC ONE (03:30)
[2022-07-05] MEDS: *HR* Enoxaparin 40 MG/0.4 ML SYRINGE SQ SCH (05:01)
[2022-07-05] MEDS ORDERED: *HR* Metoprolol 5 MG/5 ML VIAL IVP ONE (05:30)
[2022-07-05] MEDS ORDERED: *HR* LORazepam 2 MG/ML VIAL IVP ONE (05:31)
[2022-07-05] MEDS: Budesonide/Formoterol 160/4.5 1 PUFF INH IH SCH ×2 (07:42→19:42)
[2022-07-05] MEDS: Ondansetron ODT 4 MG TAB.RAPDIS SL PRN (08:11)
[2022-07-05] MEDS: lisinopriL 20 MG TABLET PO SCH (09:04)
[2022-07-05] MEDS: Metoprolol XL (24 HR) Succ 50 MG TAB.ER.24H PO SCH (09:05)
[2022-07-05] MEDS: Insulin DETEMIR 100 UNIT/ML X5UNITS SUBQ SCH ×2 (09:53→21:40)
[2022-07-05] MEDS: Thiamine (B-1) 100 MG TABLET PO SCH (09:53)
[2022-07-05] MEDS: Folic Acid 1 MG TABLET PO SCH (09:53)
[2022-07-05] MEDS: Vitamin B Complex/Vit C/Vit E 1 EACH TABLET PO SCH (09:53)
[2022-07-05] MEDS: CeFAZolin 2,000 MG/120 ML BAG IVPB SCH ×2 (10:03→19:01)
[2022-07-05] MEDS: Nystatin SUSP 5 ML UD.LIQ PO SCH ×3 (13:29→22:09)
[2022-07-05] MEDS ORDERED: Haloperidol Lactate 5 MG/ML VIAL IVP ONE (15:03)
[2022-07-05] MEDS: *HR* LORazepam 1 MG TABLET PO PRN (22:10)
[2022-07-05] MEDS: OLANZapine 5 MG TAB.RAPDIS PO SCH (22:10)
[2022-07-05] MEDS: Melatonin 3 MG TABLET PO PRN (22:10)
[2022-07-06] MEDS ORDERED: *HR* LORazepam 2 MG/ML VIAL IVP ONE (00:21)
[2022-07-06] MEDS: CeFAZolin 2,000 MG/120 ML BAG IVPB SCH ×4 (00:26→23:34)
[2022-07-06] MEDS: *HR* Enoxaparin 40 MG/0.4 ML SYRINGE SQ SCH ×2 (06:10→07:27)
[2022-07-06] MEDS: *HR* LORazepam 1 MG TABLET PO PRN ×3 (07:24→18:46)
[2022-07-06] MEDS: lisinopriL 20 MG TABLET PO SCH (07:25)
[2022-07-06] MEDS: Metoprolol XL (24 HR) Succ 50 MG TAB.ER.24H PO SCH (07:25)
[2022-07-06] MEDS: Folic Acid 1 MG TABLET PO SCH (07:25)
[2022-07-06] MEDS: *HR* OxyCODONE Immed Rel 5 MG TABLET PO PRN ×3 (07:26→18:58)
[2022-07-06] MEDS: Thiamine (B-1) 100 MG TABLET PO SCH (07:26)
[2022-07-06] MEDS: Vitamin B Complex/Vit C/Vit E 1 EACH TABLET PO SCH (07:26)
[2022-07-06] MEDS: Insulin DETEMIR 100 UNIT/ML X5UNITS SUBQ SCH ×2 (07:27→20:56)
[2022-07-06] MEDS: Nystatin SUSP 5 ML UD.LIQ PO SCH ×4 (07:28→20:56)
[2022-07-06] MEDS: Budesonide/Formoterol 160/4.5 1 PUFF INH IH SCH ×2 (08:11→21:04)
[2022-07-06 10:46] LABS: Immunoglobulin A 257 mg/dL (68-408); Immunoglobulin G 746 mg/dL (768-1632); Immunoglobulin M 63 mg/dL (35-263)
[2022-07-06] MEDS: Insulin LISPRO 300 UNITS/3 ML VIAL SUBQ SCH ×4 (13:44→21:09)
[2022-07-06] MEDS: 0.9 % Sodium Chloride 1,000 ML IVC SCH (17:05)
[2022-07-06] MEDS ORDERED: 0.9 % Sodium Chloride 1,000 ML ONE (17:26)
[2022-07-06] MEDS: QUEtiapine Fumarate 25 MG TABLET PO SCH (20:56)
[2022-07-06] MEDS: OLANZapine 5 MG TAB.RAPDIS PO SCH (20:56)
[2022-07-06 21:24] LABS: Alpha 2 Globulin (PEP) 1.15 g/dL (0.48-1.05); Beta Globulin (PEP) 0.66 g/dL (0.48-1.10)
[2022-07-06 21:51] LABS: Hematocrit RBC Folate 32.7 %
[2022-07-07] MEDS: 0.9 % Sodium Chloride 1,000 ML IVC SCH (02:20)
[2022-07-07] MEDS: Budesonide/Formoterol 160/4.5 1 PUFF INH IH SCH ×2 (07:37→20:45)
[2022-07-07] MEDS: Metoprolol XL (24 HR) Succ 50 MG TAB.ER.24H PO SCH (08:49)
[2022-07-07] MEDS: lisinopriL 20 MG TABLET PO SCH (08:50)
[2022-07-07] MEDS: *HR* LORazepam 1 MG TABLET PO PRN (08:50)
[2022-07-07] MEDS: Vitamin B Complex/Vit C/Vit E 1 EACH TABLET PO SCH (08:50)
[2022-07-07] MEDS: Folic Acid 1 MG TABLET PO SCH (08:50)
[2022-07-07] MEDS: Thiamine (B-1) 100 MG TABLET PO SCH (08:50)
[2022-07-07] MEDS: *HR* OxyCODONE Immed Rel 5 MG TABLET PO PRN (08:53)
[2022-07-07] MEDS: Nystatin SUSP 5 ML UD.LIQ PO SCH ×4 (09:01→19:37)
[2022-07-07 09:46] LABS: IFE Reflexed IFE Done
[2022-07-07 09:47] LABS: Immunoglobulin A 262 mg/dL (68-408); Immunoglobulin G 744 mg/dL (768-1632); Immunoglobulin M 63 mg/dL (35-263)
[2022-07-07] MEDS: CeFAZolin 2,000 MG/120 ML BAG IVPB SCH ×3 (11:37→23:37)
[2022-07-07] MEDS: clonazePAM 0.5 MG TABLET PO PRN (15:39)
[2022-07-07 19:11] LABS: Hematocrit RBC Folate 36.3 %
[2022-07-07] MEDS: Melatonin 3 MG TABLET PO PRN (19:37)
[2022-07-07] MEDS: QUEtiapine Fumarate 25 MG TABLET PO SCH (19:37)
[2022-07-07] MEDS: OLANZapine 5 MG TAB.RAPDIS PO SCH (19:37)
[2022-07-08] MEDS: *HR* OxyCODONE Immed Rel 5 MG TABLET PO PRN ×2 (02:55→21:33)
[2022-07-08] MEDS: clonazePAM 0.5 MG TABLET PO PRN ×3 (02:55→21:32)
[2022-07-08] MEDS: *HR* Enoxaparin 40 MG/0.4 ML SYRINGE SQ SCH (05:13)
[2022-07-08] MEDS: Budesonide/Formoterol 160/4.5 1 PUFF INH IH SCH ×2 (07:27→20:05)
[2022-07-08] MEDS: Vitamin B Complex/Vit C/Vit E 1 EACH TABLET PO SCH (09:04)
[2022-07-08] MEDS: Thiamine (B-1) 100 MG TABLET PO SCH (09:04)
[2022-07-08] MEDS: lisinopriL 20 MG TABLET PO SCH (09:04)
[2022-07-08] MEDS: Folic Acid 1 MG TABLET PO SCH (09:04)
[2022-07-08] MEDS: Metoprolol XL (24 HR) Succ 50 MG TAB.ER.24H PO SCH (09:04)
[2022-07-08] MEDS: Nystatin SUSP 5 ML UD.LIQ PO SCH ×4 (09:05→21:32)
[2022-07-08] MEDS: CeFAZolin 2,000 MG/120 ML BAG IVPB SCH ×2 (09:25→16:15)
[2022-07-08 10:37] LABS: Basophils % 0.4 %; Eosinophils # 0.1 K/mcL (0.0-0.6); Hemoglobin 11.4 g/dL (12.9-16.9); Immature Granulocytes % 0.6 % (0-4); Lymphocytes # 0.8 K/mcL (0.6-4.6); Lymphocytes % 15.4 %; Mean Corpuscular HGB Conc 31.7 g/dL (31.6-35.5); Mean Corpuscular Hemoglobin 33.5 pg (28.0-33.3); Mean Corpuscular Volume 105.9 fL (83.0-100.0); Mean Platelet Volume 9.8 fL (9.4-12.4); Monocytes # 0.4 K/mcL (0.0-1.3); Monocytes % 7.4 %; Neutrophils # 3.8 K/mcL (1.6-8.9); Platelet Count 326 K/mcL (140-400); Red Cell Distribution Width 13.2 % (11.5-14.5); Segmented Neutrophils % 75.2 %
[2022-07-08 10:57] LABS: BUN/Creatinine Ratio 17 (6-26); Blood Urea Nitrogen 13 mg/dL (8-23); Calcium 8.3 mg/dL (8.6-10.3); Carbon Dioxide 23 mEq/L (23-29); Chloride 111 mEq/L (98-107); Glucose 127 mg/dL (70-105); Osmolality,Calculated 300 (280-300); Platelet Estimate Normal (Normal); Potassium 3.2 mEq/L (3.5-5.1); Reactive Lymphocytes Present (Not Present); Sodium 144 mEq/L (136-145)
[2022-07-08] MEDS: Magic Mouthwash 10 ML UD Cup PO SCH ×2 (11:05→16:15)
[2022-07-08] MEDS ORDERED: Haloperidol Lactate 5 MG/ML VIAL IVP ONE (17:07)
[2022-07-08] MEDS: Acetaminophen 325 MG TABLET PO PRN (21:32)
[2022-07-08] MEDS: Melatonin 3 MG TABLET PO PRN (21:32)
[2022-07-08] MEDS: Ibuprofen 600 MG TABLET PO PRN (21:33)
[2022-07-08] MEDS: OLANZapine 5 MG TAB.RAPDIS PO SCH (21:33)
[2022-07-08] MEDS: Thiamine (B-1) 100 MG in 0.9 % Sodium Chloride 50 ML IVPB SCH (21:42)
[2022-07-09] MEDS: CeFAZolin 2,000 MG/120 ML BAG IVPB SCH ×4 (00:48→23:41)
[2022-07-09] MEDS: *HR* Enoxaparin 40 MG/0.4 ML SYRINGE SQ SCH (06:49)
[2022-07-09] MEDS: Budesonide/Formoterol 160/4.5 1 PUFF INH IH SCH ×2 (07:28→19:22)
[2022-07-09] MEDS: Folic Acid 1 MG TABLET PO SCH (09:17)
[2022-07-09] MEDS: lisinopriL 20 MG TABLET PO SCH (09:17)
[2022-07-09] MEDS: Metoprolol XL (24 HR) Succ 50 MG TAB.ER.24H PO SCH (09:17)
[2022-07-09] MEDS: Vitamin B Complex/Vit C/Vit E 1 EACH TABLET PO SCH (09:18)
[2022-07-09] MEDS: Nystatin SUSP 5 ML UD.LIQ PO SCH ×4 (09:19→20:33)
[2022-07-09] MEDS: Magic Mouthwash 10 ML UD Cup PO SCH ×3 (09:24→17:40)
[2022-07-09 09:40] LABS: BUN/Creatinine Ratio 16 (6-26); Blood Urea Nitrogen 12 mg/dL (8-23); Calcium 8.3 mg/dL (8.6-10.3); Carbon Dioxide 21 mEq/L (23-29); Chloride 112 mEq/L (98-107); Glucose 104 mg/dL (70-105); Osmolality,Calculated 296 (280-300); Potassium 3.2 mEq/L (3.5-5.1); Sodium 143 mEq/L (136-145)
[2022-07-09] MEDS: Thiamine (B-1) 100 MG in 0.9 % Sodium Chloride 50 ML IVPB SCH ×2 (11:09→20:33)
[2022-07-09] MEDS: *HR* OxyCODONE Immed Rel 5 MG TABLET PO PRN ×2 (11:14→22:50)
[2022-07-09] MEDS: Ibuprofen 600 MG TABLET PO PRN (14:58)
[2022-07-09] MEDS: OLANZapine 5 MG TAB.RAPDIS PO SCH (20:33)
[2022-07-10] MEDS: *HR* Enoxaparin 40 MG/0.4 ML SYRINGE SQ SCH (04:59)
[2022-07-10] MEDS: *HR* OxyCODONE Immed Rel 5 MG TABLET PO PRN ×3 (05:03→16:56)
[2022-07-10] MEDS: Magic Mouthwash 10 ML UD Cup PO SCH ×3 (07:57→16:18)
[2022-07-10 09:06] LABS: BUN/Creatinine Ratio 13 (6-26); Blood Urea Nitrogen 9 mg/dL (8-23); Calcium 8.3 mg/dL (8.6-10.3); Carbon Dioxide 18 mEq/L (23-29); Chloride 112 mEq/L (98-107); Glucose 89 mg/dL (70-105); Osmolality,Calculated 290 (280-300); Potassium 3.8 mEq/L (3.5-5.1); Sodium 141 mEq/L (136-145)
[2022-07-10] MEDS: Metoprolol XL (24 HR) Succ 50 MG TAB.ER.24H PO SCH (09:48)
[2022-07-10] MEDS: Nystatin SUSP 5 ML UD.LIQ PO SCH ×2 (09:48→14:29)
[2022-07-10] MEDS: lisinopriL 20 MG TABLET PO SCH (09:48)
[2022-07-10] MEDS: Folic Acid 1 MG TABLET PO SCH (09:48)
[2022-07-10] MEDS: Vitamin B Complex/Vit C/Vit E 1 EACH TABLET PO SCH (09:49)
[2022-07-10] MEDS: Budesonide/Formoterol 160/4.5 1 PUFF INH IH SCH (10:47)
[2022-07-10] MEDS: CeFAZolin 2,000 MG/120 ML BAG IVPB SCH ×2 (11:11→16:13)
[2022-07-10] MEDS: Thiamine (B-1) 100 MG in 0.9 % Sodium Chloride 50 ML IVPB SCH (11:12)
[2022-07-10 15:59] VITALS: BP 155/97; PULSE 84; TEMP 98.3
[2022-07-10 16:02] VITALS: O2SAT 98
== END 2022-07-10 17:12 | disposition home health service (06) | DRG 208 ==
LOC: 2NENU → SUATTDRO 22:37 → 2NNU 06-24 19:14 → ICNU 06-26 17:31 → 2NNU 07-03 15:46 → 3ANU 07-07 18:24
PROVIDERS: ADMIT Internal Medicine; ATTEND Family Medicine